=== PATIENT | male | born 2000 | race Caucasian/White ===

== ENCOUNTER 2021-09-07 20:24 | Emergency (ER) | payer BC, OTHER ==
[2021-09-07 21:00] VITALS: BP 141/78; PULSE 81
--- NOTE | 2021-09-07 22:30 | EDM.PDOC ---
ED HPI GENERAL MEDICAL PROBLEM - General Chief Complaint: Skin Complaint Stated Complaint: RASH Time Seen by Provider: 09/07/21 22:12 - History of Present Illness INITIAL COMMENTS - FREE TEXT/NARRATIVE: HISTORY AND PHYSICAL: History of present illness: This a 21-year-old gentleman who presents ER today secondary to rash to his suprapubic region. Patient reports that he noticed it several days ago has been constantly there. Patient denies any swelling or pain. Patient reports that he is concerned that it is an STD. Patient has any recent fevers, shakes, chills, nausea, vomit, diarrhea, dysuria, frequency, urgency. Review of systems: As per history of present illness and below otherwise all systems reviewed and negative. Past medical history: As per history of present illness and as reviewed below otherwise nonc ontributory. Surgical history: As per history of present illness and as reviewed below otherwise noncontributory. Social history: No reported history of drug abuse. Family history: As per history of present illness and as reviewed below otherwise noncontributory. Physical exam: This patient was seen and evaluated during the 2019 SARS-CoV-2 novel coronavirus pandemic period. Community viral transmission is ongoing at time of this encounter and the emergency department is operating under pandemic response procedures. Constitutional: Patient is oriented to person, place, and time. Appears well- developed and well-nourished. No distress. HEENT: Moist mucous membranes Head: Normocephalic and atraumatic Eyes: Right eye exhibits no discharge. Left eye exhibits no discharge. No scl eral icterus Neck: Normal range of motion. No tracheal deviation present. Cardiovascular: Normal rate and regular rhythm. Pulmonary: Effort normal, no respiratory distress. Abdominal: No distention Musculoskeletal: Normal range of motion Neurologic: Alert and oriented to person, place and time. Skin: [place], warm and dry. Patient with a 2 x 2 centimeter area of erythema in the suprapubic area in the region where he is shaved is pubic hair. Area appears to have a target lesion consistent with likely ringworm. Psychiatric: Normal mood and affect. Behavior is normal. Judgment and thought content normal. Nursing note and vital signs have been reviewed Diagnostics: [] Therapeutics: [] Assessment and plan: 21-year-old with rash to his suprapubic region that is consistent with likely ringworm. No evidence of folliculitis. No evidence of cellulitis. Patient was given a prescription for Lotrisone ointment and instructed to follow-up with If not improved. Reassessment at the time of disposition demonstrates that the patient is in no acute distress. The patient has remained stable throughout the entire ED visit and is without objective evidence for acute process requiring urgent intervention or hospitalization. The patient is stable for discharge, counseling is provided as documented above, discussed symptomatic treatment and specific conditions for return. I have spoken with the patient/caregiver and discussed todays findings, in addition to providing specific details for the plan of care. Questions are answered and there is agreement with the plan. Definitive disposition and diagnosis as appropriate pending reevaluation and review of above. - Related Data Allergies Allergy/AdvReac Type Severity Reaction Status Date / Time No Known Allergies Allergy Verified 09/07/21 21:00 Home Meds: Home Meds Betamethasone/Clotrimazole [Lotrisone] 1 applic TOP BID #15 gm 09/07/21 [Rx] Past Medical History - Past Health History Medical/Surgical History: Denies Medical/Surgical History Social & Family History - Tobacco Use Second Hand Smoke Exposure: No - Caffeine Use Caffeine Use: Reports: None - Recreational Drug Use Recreational Drug Use: No ED ROS GENERAL - Review of Systems Review Of Systems: See Below ED EXAM, SKIN/RASH Exam: See Below Course - Vital Signs Last Recorded V/S: Last Vital Signs Temp 98.2 F 09/07/21 20:57 Pulse 81 09/07/21 20:57 Resp 20 09/07/21 20:57 BP 141/78 H 09/07/21 20:57 Pulse Ox 98 09/07/21 20:57 Departure - Departure Time of Disposition: 22:28 Disposition: Home, Self-Care 01 Condition: Good Clinical Impression: Ringworm - Discharge Information Instructions: Body Ringworm Referrals: PCP,None [Primary Care Provider] - Additional Instructions: Seen and evaluated in the ER today secondary to a rash in your suprapubic area. This rash appears to be consistent with a likely fungal infection/ringworm possibly. You will be given a prescription for Lotrisone cream to apply twice a day for 2 weeks. Please make an appointment to follow-up with your family doctor in the next week for reevaluation. The following information is given to patients seen in the emergency department who are being discharged to home. This information is to outline your options for follow-up care. We provide all patients seen in our emergency department with a follow-up referral. The need for follow-up, as well as the timing and circumstances, are variable depending upon the specifics of your emergency department visit. If you don't have a primary care physician on staff, we will provide you with a referral. We always advise you to contact your personal physician following an emergency department visit to inform them of the circumstance of the visit and for follow-up with them and/or the need for any referrals to a consulting specialist. The emergency department will also refer you to a specialist when appropriate. This referral assures that you have the opportunity for follow-up care with a specialist. All of these measure are taken in an effort to provide you with optimal care, which includes your follow-up. Under all circumstances we always encourage you to contact your private physician who remains a resource for coordinating your care. When calling for follow-up care, please make the office aware that this follow-up is from your recent emergency room visit. If for any reason you are refused follow-up, please contact the [facility] Emergency Department at and asked to speak to the emergency department charge nurse. [facility] [address] [place] [id number] [address] [address] Sepsis Event Note (ED) - Evaluation Sepsis Screening Result: No Definite Risk - Focused Exam Vital Signs: Vital Signs Temp Pulse Resp BP Pulse Ox 09/07/21 20:57 98.2 F 81 20 141/78 H 98
== END 2021-09-07 23:30 | disposition home or self-care (01) ==
LOC: MW.ED 20:24
DX: B35.6 Tinea cruris (principal)
CPT/HCPCS: 99282

== ENCOUNTER 2023-04-16 21:54 | Emergency (ER) | payer BC ==
[2023-04-17 02:32] VITALS: BP 133/88; PULSE 89
== END 2023-04-17 01:40 | disposition home or self-care (01) ==
LOC: MW.ED 21:54
DX: Z04.3 Encounter for examination and observation following other accident (principal)
CPT/HCPCS: 99282; 99283